=== PATIENT | male | born 1985 | race Caucasian/White ===

== ENCOUNTER 2018-03-20 12:56 | Emergency (ER) | payer BC ==
--- NOTE | 2018-03-20 13:08 | EDM.PDOC ---
ED HPI GENERAL MEDICAL PROBLEM - General Stated Complaint: HIGH TRIPONIN Time Seen by Provider: 03/20/18 12:56 Source of Information: Reports: Patient, Family History Limitations: Reports: No Limitations - History of Present Illness INITIAL COMMENTS - FREE TEXT/NARRATIVE: 32 y.o.w.m, in prev healthy condition, was transferred to the ed from the clinic because of an elevated Troponin. ECG was Nl. Pt had chest pain at 2 am today, lasting 45 min and subsided completely. He went to the clinic this am for evaluation. Cbc, BMP were all nl, however, the Troponin was elevated to 0.999. Pt had no chest pain. He was in his usual state of health. He started to work out 3 months ago and is using marijuana occ. No trauma. Neg F/H of CAD. Does not smoke or drink. No N/V/D or dizziness or any other acute medical issues. BP 120/73 pulse 74 RR 17 Temp 36.8 O2 sat 99% on RA Onset Date: 03/20/18 Onset Time: 02:00 Duration: Hour(s): Location: Reports: Chest Quality: Reports: Ache, Burning, Dull, Pressure, Throbbing Severity: Moderate Improves with: Reports: None Worsens with: Reports: None Context: Reports: Activity (Pt started workout a few months ago, takes Marijuana ) Associated Symptoms: Reports: No Other Symptoms, Chest Pain (lasted 45 min at about 2 am) - Related Data Allergies Allergy/AdvReac Type Severity Reaction Status Date / Time bee sting Allergy Hives Uncoded 03/20/18 14:12 Home Meds: Home Meds NK [No Known Home Meds] 03/20/18 [History] ED ROS GENERAL - Review of Systems Review Of Systems: See Below Constitutional: Reports: No Symptoms HEENT: Reports: No Symptoms Respiratory: Reports: No Symptoms Cardiovascular: Reports: Chest Pain (subsided at about 3 am) Endocrine: Reports: No Symptoms GI/Abdominal: Reports: No Symptoms : Reports: No Symptoms Musculoskeletal: Reports: No Symptoms Skin: Reports: No Symptoms Neurological: Reports: No Symptoms Psychiatric: Reports: No Symptoms Hematologic/Lymphatic: Reports: No Symptoms Immunologic: Reports: No Symptoms ED EXAM, GENERAL - Physical Exam Exam: See Below Exam Limited By: No Limitations General Appearance: Alert, WD/WN, No Apparent Distress Eye Exam: Bilateral Eye: Normal Inspection Ears: Normal External Exam Ear Exam: Bilateral Ear: Auricle Normal Nose: Normal Inspection, Normal Mucosa Throat/Mouth: Normal Inspection, Normal Lips Head: Atraumatic, Normocephalic Neck: Normal Inspection, Supple, Non-Tender, Full Range of Motion Respiratory/Chest: No Respiratory Distress, Lungs Clear, Normal Breath Sounds, No Accessory Muscle Use, Chest Non-Tender Cardiovascular: Normal Peripheral Pulses, Regular Rate, Rhythm, No Edema, No Gallop, No JVD, No Murmur, No Rub Peripheral Pulses: 1+: Brachial (L) GI/Abdominal: Normal Bowel Sounds, Soft, Non-Tender, No Organomegaly, No Distention, No Abnormal Bruit, No Mass, Pelvis Stable (Male) Exam: No Hernia Rectal (Males) Exam: Deferred Back Exam: Normal Inspection, Full Range of Motion Extremities: Normal Inspection, Normal Range of Motion, Non-Tender, No Pedal Edema, Normal Capillary Refill Neurological: Alert, Oriented, CN II-XII Intact, Normal Cognition, Normal Gait, Normal Reflexes, No Motor/Sensory Deficits Psychiatric: Normal Affect, Normal Mood Skin Exam: Warm, Dry, Intact, Normal Color, No Rash Lymphatic: No Adenopathy EKG INTERPRETATION EKG Date: 03/20/18 Time: 13:05 Rhythm: NSR Rate (Beats/Min): 64 Christine: Normal P-Wave: Present QRS: Normal ST-T: Normal QT: Normal Comparison: NA - No Prior EKG Course - Vital Signs Text/Narrative:: 32 y.o.w.m, in prev healthy condition, was transferred to the ed from the clinic because of an elevated Troponin. ECG was Nl. Pt had chest pain at 2 am today, lasting 45 min and subsided completely. He went to the clinic this am for evaluation. Cbc, BMP were all nl, however, the Troponin was elevated to 0.999. Pt had no chest pain. He was in his usual state of health. He started to work out 3 months ago and is using marijuana occ. No trauma. Neg F/H of CAD. Does not smoke or drink. No N/V/D or dizziness or any other acute medical issues. BP 120/73 pulse 74 RR 17 Temp 36.8 O2 sat 99% on RA PE: 32 y.o.w.m with on episode of CP at 2 am, which subsided completely after 45 min, has an elevated Troponin to 2.94 with a nl EKG and chest pain free Imaging: CXR: NAD Labs: Troponin 2.940 CBC, BMP were nl CK 143 D Dimer 106 INR 1.06 PTT 28.6 GFR > 60 Cr. 1.1 BUN 15 Na 140 K 3.6 UDS pos for marijuana Impression: Non STEMI Tx: ASA. Heparin Drip with bolus 2.04 pm Consultation: Dr. Anders, Front Office Spec, [facility]: Heparin drip with Heparin Bolus Transfer to [facility] Reexam: Pt remained pain free while here in the ED Plan: Transfer to [facility]. Last Recorded V/S: Last Vital Signs Temp 37.0 C 03/20/18 13:00 Pulse 71 03/20/18 14:46 Resp 15 03/20/18 14:46 BP 123/73 03/20/18 14:46 Pulse Ox 98 03/20/18 14:46 - Orders/Labs/Meds Labs: Laboratory Tests 03/20/18 03/20/18 03/20/18 Range/Units 13:15 13:15 13:15 WBC (4.5-12.0) X10-3/uL RBC (4.30-5.75) x10(6)uL Hgb (11.5-15.5) g/dL Hct (30.0-51.3) % MCV (80-96) fL MCH (27.7-33.6) pg MCHC (32.2-35.4) g/dL RDW (11.5-15.5) % Plt Count (125-369) X10(3)uL MPV (7.4-10.4) fL Add Manual Diff Neutrophils % (Manual) (46-82) % Lymphocytes % (Manual) (13-37) % Monocytes % (Manual) (4-12) % PT (8.7-11.1) INR (0.89-1.13) APTT (24.4-33.2) SECONDS D-Dimer, Quantitative 107 (100-400) ng/mL Sodium (135-145) mmol/L Potassium (3.5-5.3) mmol/L Chloride (100-110) mmol/L Carbon Dioxide (21-32) mmol/L BUN (7-18) mg/dL Creatinine (0.70-1.30) mg/dL Est Cr Clr Drug Dosing mL/min Estimated GFR (MDRD) (>60) BUN/Creatinine Ratio (9-20) Glucose (80-116) mg/dL Calcium (8.6-10.2) mg/dL Creatine Kinase 179 H (60-160) IU/L Troponin I 2.940 H* (<0.017-0.056) ng/mL Urine Opiates Screen (NEGATIVE) Ur Oxycodone Screen (NEGATIVE) Ur Propoxyphene Screen (NEGATIVE) Ur Barbituates Screen (NEGATIVE) Ur Tricyclics Screen (NEGATIVE) Ur Phencyclidine Scrn (NEGATIVE) Ur Amphetamine Screen (NEGATIVE) Urine MDMA Screen (NEGATIVE) U Benzodiazepines Scrn (NEGATIVE) U Cocaine Metab Screen (NEGATIVE) U Marijuana (THC) Screen (NEGATIVE) 03/20/18 03/20/18 03/20/18 Range/Units 13:15 13:15 13:15 WBC 4.7 (4.5-12.0) X10-3/uL RBC 4.64 (4.30-5.75) x10(6)uL Hgb 13.6 (11.5-15.5) g/dL Hct 40.1 (30.0-51.3) % MCV 86.6 (80-96) fL MCH 29.2 (27.7-33.6) pg MCHC 33.8 (32.2-35.4) g/dL RDW 11.6 (11.5-15.5) % Plt Count 227 (125-369) X10(3)uL MPV 8.4 (7.4-10.4) fL Add Manual Diff Yes Neutrophils % (Manual) 62 (46-82) % Lymphocytes % (Manual) 25 (13-37) % Monocytes % (Manual) 13 H (4-12) % PT 10.7 (8.7-11.1) INR 1.06 (0.89-1.13) APTT 26.8 (24.4-33.2) SECONDS D-Dimer, Quantitative (100-400) ng/mL Sodium 140 (135-145) mmol/L Potassium 3.6 (3.5-5.3) mmol/L Chloride 103 (100-110) mmol/L Carbon Dioxide 23 (21-32) mmol/L BUN 15 (7-18) mg/dL Creatinine 1.0 (0.70-1.30) mg/dL Est Cr Clr Drug Dosing 107.47 mL/min Estimated GFR (MDRD) > 60 (>60) BUN/Creatinine Ratio 15.0 (9-20) Glucose 117 H (80-116) mg/dL Calcium 9.1 (8.6-10.2) mg/dL Creatine Kinase (60-160) IU/L Troponin I (<0.017-0.056) ng/mL Urine Opiates Screen (NEGATIVE) Ur Oxycodone Screen (NEGATIVE) Ur Propoxyphene Screen (NEGATIVE) Ur Barbituates Screen (NEGATIVE) Ur Tricyclics Screen (NEGATIVE) Ur Phencyclidine Scrn (NEGATIVE) Ur Amphetamine Screen (NEGATIVE) Urine MDMA Screen (NEGATIVE) U Benzodiazepines Scrn (NEGATIVE) U Cocaine Metab Screen (NEGATIVE) U Marijuana (THC) Screen (NEGATIVE) 03/20/18 Range/Units 14:05 WBC (4.5-12.0) X10-3/uL RBC (4.30-5.75) x10(6)uL Hgb (11.5-15.5) g/dL Hct (30.0-51.3) % MCV (80-96) fL MCH (27.7-33.6) pg MCHC (32.2-35.4) g/dL RDW (11.5-15.5) % Plt Count (125-369) X10(3)uL MPV (7.4-10.4) fL Add Manual Diff Neutrophils % (Manual) (46-82) % Lymphocytes % (Manual) (13-37) % Monocytes % (Manual) (4-12) % PT (8.7-11.1) INR (0.89-1.13) APTT (24.4-33.2) SECONDS D-Dimer, Quantitative (100-400) ng/mL Sodium (135-145) mmol/L Potassium (3.5-5.3) mmol/L Chloride (100-110) mmol/L Carbon Dioxide (21-32) mmol/L BUN (7-18) mg/dL Creatinine (0.70-1.30) mg/dL Est Cr Clr Drug Dosing mL/min Estimated GFR (MDRD) (>60) BUN/Creatinine Ratio (9-20) Glucose (80-116) mg/dL Calcium (8.6-10.2) mg/dL Creatine Kinase (60-160) IU/L Troponin I (<0.017-0.056) ng/mL Urine Opiates Screen Negative (NEGATIVE) Ur Oxycodone Screen Negative (NEGATIVE) Ur Propoxyphene Screen Negative (NEGATIVE) Ur Barbituates Screen Negative (NEGATIVE) Ur Tricyclics Screen Negative (NEGATIVE) Ur Phencyclidine Scrn Negative (NEGATIVE) Ur Amphetamine Screen Negative (NEGATIVE) Urine MDMA Screen Negative (NEGATIVE) U Benzodiazepines Scrn Negative (NEGATIVE) U Cocaine Metab Screen Negative (NEGATIVE) U Marijuana (THC) Screen Positive H (NEGATIVE) Meds: Medications Discontinued Medications Generic Name Dose Route Start Last Admin Trade Name Freq PRN Reason Stop Dose Admin Aspirin 324 mg 03/20/18 14:15 Aspirin PO 03/20/18 14:16 ONETIME ONE Heparin Sodium (Porcine) 4,000 units 03/20/18 14:20 03/20/18 14:29 Heparin Sodium IV 03/20/18 14:21 4,000 units ONETIME ONE Administration Heparin Sodium/Sodium Chloride 25,000 units in 500 mls @ 20.003 mls/hr 14:15 03/20/18 14:29 Heparin 25,000 Units In 1/2 Ns 500 Ml IV 10.5 units/kg/hr TITRATE JOSHUA 20.003 mls/hr Administration Protocol 10.5 UNITS/KG/HR Departure - Departure Time of Disposition: 13:00 Disposition: DC/Tfer to Acute Hospital 02 Reason for Transfer *Q: Other (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
[2018-03-20] MEDS ORDERED: Aspirin 81 MG Tab.Chew PO ONE (14:15)
[2018-03-20] MEDS ORDERED: Heparin Sodium/0.45% NaCl 25,000 UNITS/500 ML BAG IV SCH (14:15)
[2018-03-20] MEDS ORDERED: Heparin Sodium 5,000 Units/ML Vial IV ONE (14:20)
--- NOTE | 2018-03-20 14:43 | CR ---
INDICATION: Chest pain. CHEST: An AP upright view of the chest was obtained, 03/20/2018 - no comparisons. Heart, mediastinum, and bony thorax were grossly unremarkable. An active infiltrate or effusion was not identified. Overlying EKG leads are noted. IMPRESSION: No acute process - no definite active disease. MTDD
== END 2018-03-20 15:05 ==
LOC: FB.ED 12:56
DX: I21.4 Non-ST elevation (NSTEMI) myocardial infarction (principal); Z91.030 Bee allergy status
CPT/HCPCS: 36415; 71045; 80048; 80305; 82550; 84484; 85025; 85379; 85610; 85730; 93005; 96365; 99285; J1644